=== PATIENT | male | born 1990 | race Caucasian/White ===

== ENCOUNTER 2021-12-20 21:08 | Outpatient (REF) | payer OTHER, SELFPAY ==
[2021-12-21 10:31] LABS: COVID-19 RT-PCR UVMMC Result Negative (Negative)
== END 2021-12-20 21:09 | disposition home or self-care (01) ==
LOC: LBN 21:08
PROVIDERS: Visit Provider Nurse Practitioner Family
DX: Z20.822 Contact with and (suspected) exposure to COVID-19 (principal); J02.9 Acute pharyngitis, unspecified
CPT/HCPCS: U0003

== ENCOUNTER 2022-11-10 01:42 | Outpatient (CLI) | payer OTHER, SELFPAY ==
--- NOTE | 2022-11-10 09:00 | ETT_ITS ---
APPROVED REPORT Exam: Exercise Treadmill Patient Location: Out-Patient Room/Bed: Stress Nurse: Latanya Alvarenga RN Ordering Provider:THAI AZAEL, Contact Number: [phone] BMI: 23.67 Baseline Rhythm: Sinus Rhythm Indications: Chest pain, chronic tachycardia Medical History Medical History: Chronic tachycardia, situational anxiety, ETOH abuse, current smoker Cardiac Medications: Naltrexone, citalopram, clonidine Allergies: Wellbutrin Cardiac Risk Factors: smoker Previous Cardiac Procedures: none Pretest Chest Pain Characteristics: None Exercise History: Sedentary Physical Disabilities: None Lung Sounds: Clear to auscultation Heart Sounds: Regular Stress Test Details Test: Exercise stress testing was performed using a John protocol. Rest Stress HR Resting HR Supine: 64 bpm Max Heart Rate (APMHR): 188 bpm Resting HR Standin bpm Target HR (85% APMHR): 160 bpm Max HR Achieved: 160 bpm % of APMHR: 85 Recovery HR: 83 bpm HR response to stress: Normal HR response to stress BP Resting BP Supine: 114/77 mmHg Resting BP Standin/65 mmHg Max BP: 162/74 mmHg Recovery BP: 134/70 mmHg BP response to stress: Normal blood pressure response to stress. ECG Resting ECG: Sinus Rhythm Ectopy: None Stress ECG: Sinus Tachycardia ST Change: No significant ST segment changes noted Arrhythmia: None Recovery ECG: Sinus Rhythm Recovery Arrhythmia: None Clinical Reason for Termination: Fatigue, Dyspnea Stress Symptoms: General Fatigue, Dyspnea Exercise duration: 13 min19 sec Highest Stage Reached: Stage 5: 5.0 mph at 18% grade. Exercise capacity: 14.38 METs Angina Score: None Castro Treadmill Score: 12.2 Rate Pressure Product: [id number] Stress ECG Conclusion 1. Resting electrocardiogram showed sinus rhythm at 64 and was within normal limits 2. Patient exercised on John protocol and completed a workload of 14.38 METS 3. Normal heart rate and blood pressure response to exercise. The patient achieved 85% of predicted heart rate for age 4. There was no electrocardiographic evidence of myocardial ischemia 5. There were no dysrhythmias Castro Treadmill Score is 12.2 which is Low risk. Stress Test Summary STAGE Time (mins) Speed (mph) Grade (%) HR BP SpO2 SYMPTOMS METS Supine 64 114/77 98 Standing 72 104/65 98 1 3 1.7 10 92 110/64 98 4.5 2 6 2.5 12 105 122/70 99 7 3 9 3.4 14 120 132/78 97 Moderate dyspnea 10 4 12 4.2 16 148 150/82 96 Moderate dyspnea 13 5 15 5.0 18 160 92 Moderate dyspnea 15 1 min recovery 133 160/78 92 Moderate dyspnea 3 min recovery 85 162/74 98 Dyspnea resolving 6 min recovery 83 134/70 96 Dyspnea resolved
== END 2022-11-10 02:02 ==
PROVIDERS: Visit Provider Family Medicine
DX: R07.9 Chest pain, unspecified (principal)
CPT/HCPCS: 93017

== ENCOUNTER 2023-01-23 17:26 | Outpatient (REF) | payer OTHER, SELFPAY ==
[2023-01-23 14:30] LABS: Abs Immature Grans 0.02 10^3/uL (0.0-0.06); Absolute Basophil Count 0.08 10^3/uL (0.0-0.2); Absolute Eosinophil Count 0.46 10^3/uL (0.0-0.7); Absolute Lymphocyte Count 2.83 10^3/uL (1.2-3.4); Absolute Monocyte Count 0.44 10^3/uL (0.1-0.8); Absolute Neutrophil Count 3.89 10^3/uL (1.2-6.7); HCT 41.3 % (40.0-50.0); HGB 14.4 g/dL (13.5-17.5); Immature Grans % 0.3; Lymphocytes % 36.7; MCH 30.8 pg (27.0-33.0); MCHC 34.9 % (32.0-36.0); MCV 88 fL (80-95); MPV 10.8 fL (8.0-11.0); Monocytes % 5.7; Neutrophils % 50.3; Platelet Count 238 10^3/uL (130-400); RBC 4.68 10^6/uL (4.36-5.78); RDW 12.5 % (11.8-14.1); RDW-SD 40.5 fL; WBC 7.72 10^3/uL (4.4-10.8)
[2023-01-23 15:04] LABS: ALT 32 U/L (16-63); AST 24 U/L (15-37); Albumin 4.2 g/dL (3.4-5.0); Alkaline Phosphatase 71 U/L (46-116); BUN 12 mg/dL (7-18); Bilirubin, Total 0.4 mg/dL (0.2-1.0); Chloride 104 mmol/L (98-107); Estimated GFR 102.55 (mL/min/1.73m2); Glucose 85 mg/dL (74-106); Potassium 4.2 mmol/L (3.5-5.1); Sodium 138 mmol/L (136-145); TSH (W/Ref FT4) 0.54 uIU/mL (0.36-3.74); Total Protein 7.3 g/dL (6.4-8.2)
[2023-01-28 09:46] LABS: Misc Referral (UVM) See Comments
== END 2023-01-23 17:27 | disposition home or self-care (01) ==
LOC: NCHCN 17:26
PROVIDERS: Visit Provider Family Medicine
DX: R53.83 Other fatigue (principal); R61 Generalized hyperhidrosis
CPT/HCPCS: 80053; 82533; 84443; 85025; 86140

== ENCOUNTER 2023-02-02 20:03 | Outpatient (REF) | payer OTHER, SELFPAY ==
--- NOTE | 2023-02-02 14:20 | SKI_PTH ---
PATIENT: Ti Kraus LOC: [facility] U#:[id number] AGE/SX: 33/M ROOM: RE02/02/[address]: Karen Huffman : 1990 BED: DIS: 02/02/2023 SPEC #: [id number] RECD: 02/03/23 12:16 STATUS: SUBHASH HO #: [id number] GRICEL: 02/02/23 14:[address]: Karen Huffman DEPT: Surgical Specimen RECD BY: Gemini John Tissues: 1 - SKIN BIOPSY(SHAVE/PUNCH) Procedures: SKIN LEVEL 4 Comments: [id number]
== END 2023-02-02 20:04 | disposition home or self-care (01) ==
LOC: NCHCN 20:03
PROVIDERS: Visit Provider Family Medicine
DX: L82.1 Other seborrheic keratosis (principal); D48.1 Neoplasm of uncertain behavior of connective and other soft tissue
CPT/HCPCS: 88305